=== PATIENT | female | born 1970 | race Caucasian/White ===

== ENCOUNTER → 2020-06-09 15:13 | Outpatient (CLI) | payer OTHER, SELFPAY ==
--- NOTE | ~2020-06-09 | MM_ITS ---
EXAMINATION: MM screening [facility] HISTORY: Screening TECHNIQUE: Craniocaudal and mediolateral oblique 3-D tomosynthesis images were obtained and synthetic 2-D images were generated. CAD analysis was submitted and interpreted. COMPARISON: No prior mammogram is available for comparison at this institution. BREAST PARENCHYMAL COMPOSITION: The breasts are heterogeneously dense, which may obscure small masses . FINDINGS: There is no evidence of suspicious mass, calcification, or architectural distortion to sugg est malignancy in either breast. There has been no suspicious interval change. IMPRESSION: 1. No mammographic evidence of malignancy. 2. Recommend routine screening mammography in one year. BI-RADS Category 1: Negative Reviewed, dictated and finalized at location A.
--- NOTE | ~2020-06-09 | US_ITS ---
EXAMINATION: US thyroid DATE: 06/09/2020 15:34 INDICATION: Disorder of thyroid gland. TECHNIQUE: Multiple ultrasound images of the thyroid were obtained. COMPARISON: None. FINDINGS: The right thyroid lobe measures 4.0 x 2.2 x 1.5 cm. The left thyroid lobe measures 4.3 x 1.8 x 1.4 c m. The thyroid demonstrates heterogeneous echogenicity. Vascularity is normal. In the right thyroid lobe, there is a 1.1 cm solid, hypoechoic, lhrwi-zono-pzuw nodule with lobulated margin without echog enic foci (TI-RADS TR4). IMPRESSION: 1. Right thyroid nodule. Thyroid ultrasound is recommended in one year. 2. Heterogeneous thyroid, which may be chronic lymphocytic (Kat) thyroiditis. Reviewed, dictated and finalized at location A. IMPRESSION: 1. Right thyroid nodule. Thyroid ultrasound is recommended in one year. 2. Heterogeneous thyroid, which may be chronic lymphocytic (Kat) thyroidi tis.
== END ==
PROVIDERS: PCP Nurse Practitioner Adult Health; Visit Provider Nurse Practitioner Adult Health
DX: Z12.31 Encounter for screening mammogram for malignant neoplasm of breast (principal); E07.9 Disorder of thyroid, unspecified; E04.1 Nontoxic single thyroid nodule
CPT/HCPCS: 76536; 77063; 77067

== ENCOUNTER → 2021-02-27 07:46 | Outpatient (CLI) | payer OTHER, SELFPAY ==
--- NOTE | ~2021-02-27 | US_ITS ---
EXAMINATION: US thyroid DATE: 02/27/2021 08:11 INDICATION: Nontoxic single thyroid nodule. TECHNIQUE: Multiple ultrasound images of the thyroid were obtained. COMPARISON: Ultrasound 06/09/2020 FINDINGS: The right thyroid lobe measures 4.8 x 2.3 x 1.9 cm. The left thyroid lobe measures 5.6 x 2.0 x 2.1 c m. The thyroid demonstrates diffusely heterogeneous echogenicity. Vascularity is normal. In the left thyroid lobe, there is a 1.2 cm solid, hypoechoic, qwqtq-zuck-juoo nodule with ill-defined margin wi thout echogenic foci (TI-RADS TR4). There are multiple subcentimeter nodules in right thyroid lobe. IMPRESSION: 1. Stable right thyroid nodule. Thyroid ultrasound is recommended in one year. 2. Heterogeneous thyroid, which may be chronic lymphocytic (Kat) thyroiditis. Reviewed, dictated and finalized at location A. IMPRESSION: 1. Stable right thyroid nodule. Thyroid ultrasound is recommended in one year. 2. Heterogeneous thyroid, which may be chronic lymphocytic (Kat) thyroidi tis.
== END ==
PROVIDERS: PCP Nurse Practitioner Adult Health; Visit Provider Internal Medicine Endocrinology, Diabetes & Metabolism
DX: E04.1 Nontoxic single thyroid nodule (principal)
CPT/HCPCS: 76536

== ENCOUNTER 2024-05-19 15:56 | Outpatient (CLI) | payer OTHER, SELFPAY ==
--- NOTE | ~2024-05-19 | US_ITS ---
EXAMINATION: US thyroid DATE: 05/19/2024 16:09 INDICATION: Disorder of thyroid, unspecified. TECHNIQUE: Multiple ultrasound images of the thyroid were obtained. COMPARISON: Ultrasound 02/27/2021 FINDINGS: The right thyroid lobe measures 4.1 x 1.9 x 2.0 cm. The left thyroid lobe measures 5.0 x 2.1 x 2.3 c m. In the right thyroid lobe, there is a 12 mm solid, hypoechoic, wider than tall nodule with irregu lar margin without echogenic foci (TI-RADS TR4). IMPRESSION: 1. Right thyroid nodule, stable from 06/09/2020. Consider thyroid ultrasound in 2 years. Reviewed, dictated and finalized at location A.
== END 2024-05-19 15:57 ==
LOC: GOSHIMG 15:57
PROVIDERS: PCP Nurse Practitioner Adult Health; Visit Provider Nurse Practitioner Adult Health
DX: E04.1 Nontoxic single thyroid nodule (principal)
CPT/HCPCS: 76536

== ENCOUNTER 2024-09-30 14:14 | Outpatient (CLI) | payer OTHER, SELFPAY ==
--- NOTE | ~2024-09-30 | MM_ITS ---
EXAMINATION: MM screening [facility] HISTORY: Screening mammogram TECHNIQUE: Craniocaudal and mediolateral oblique 3-D tomosynthesis images were obtained and synthetic 2-D images were generated. CAD analysis was submitted and interpreted. COMPARISON: 06/09/2020 BREAST PARENCHYMAL COMPOSITION:Not Dense. There are scattered areas of fibroglandular density. FINDINGS: No suspicious mass, calcification, or architectural distortion are identified in either ria ast to suggest malignancy. There has been no suspicious interval change. IMPRESSION: No mammographic evidence of malignancy. Recommend routine screening mammography in one year. BI-RADS Category 1: Negative Reviewed, dictated and finalized at location . [facility]
== END 2024-09-30 14:15 | disposition home or self-care (01) ==
LOC: MICIMG 14:14
PROVIDERS: PCP Nurse Practitioner Adult Health; Visit Provider Obstetrics & Gynecology
DX: Z12.31 Encounter for screening mammogram for malignant neoplasm of breast (principal)
CPT/HCPCS: 77063; 77067